=== PATIENT | female | born 1950 | race Caucasian/White ===

== ENCOUNTER 2016-10-09 07:47 | Emergency (ER) | payer OTHER ==
[~2016-10-09] VITALS: Ht 162.6 cm; Wt 49.0 kg
[~2016-10-09 07:47] MED LIST: AMIT25TA9 PO
[2016-10-09] MEDS ORDERED: INSU3INS6 SUBCUT (07:58)
[2016-10-09 08:30] LABS: BASOPHILS % 1.1 % (0.0-2.0); EOSINOPHILS % 2.4 % (0.0-5.0); HEMATOCRIT. 42.1 % (36.0-48.0); HEMOGLOBIN. 13.9 g/dL (12.0-16.0); LYMPHOCYTES % 25.2 % (20.0-50.0); MEAN CORPUSCULAR HEMOGLOBIN 27.5 pg (28.0-32.0); MEAN CORPUSCULAR VOLUME 83.3 fL (81.0-99.0); MEAN PLATELET VOLUME 7.4 fl (7.4-10.4); NEUTROPHILS % 64.3 % (40.0-76.0); PLATELET 252 x1000/uL (130-400); RED BLOOD CELL COUNT 5.05 mill/uL (4.2-5.4); RED CELL DISTRIBUTION WIDTH 17.6 % (11.6-14.6)
[2016-10-09 08:34] LABS: CHLORIDE 110 mEq/L (98-107)
[2016-10-09 08:40] LABS: CARBON DIOXIDE 23 mEq/L (21-32); ETHANOL BLOOD 73 mg/dL
[2016-10-09 09:13] LABS: KETONES URINE NEGATIVE (NEGATIVE); LEUKOCYTE ESTERASE URINE TRACE (NEGATIVE); NITRITE URINE NEGATIVE (NEGATIVE); OCCULT BLOOD URINE NEGATIVE (NEGATIVE); PROTEIN URINE NEGATIVE (NEGATIVE); SPECIFIC GRAVITY URINE 1.014 (1.005-1.030)
[2016-10-09 09:19] LABS: CLARITY URINE CLEAR (CLEAR); COLOR URINE YELLOW (YELLOW)
[2016-10-09 10:00] VITALS: BP 144/92
== END 2016-10-09 10:03 | disposition home or self-care (01) ==
LOC: ER 07:55
DX: S50.02XA Contusion of left elbow, initial encounter (principal); S29.9XXA Unspecified injury of thorax, initial encounter; E11.9 Type 2 diabetes mellitus without complications; F32.9 Major depressive disorder, single episode, unspecified; Z79.4 Long term (current) use of insulin; V43.52XA Car driver injured in collision with other type car in traffic accident, initial encounter; Y93.89 Activity, other specified; Y92.488 Other paved roadways as the place of occurrence of the external cause
CPT/HCPCS: 36415; 71010; 80048; 81001; 82962; 85025; 93005; 99285; G0482

== ENCOUNTER 2019-02-09 19:06 | Emergency (ER) | payer OTHER ==
[~2019-02-09] VITALS: Ht 152.4 cm; Wt 50.0 kg
[~2019-02-09 19:06] MED LIST changes: +INSU3INS6 SUBCUT
[2019-02-09] MEDS ORDERED: KETOROLAC 60MG/2ML VIAL IM ONE (20:00)
[2019-02-09 22:11] VITALS: BP 135/70
== END 2019-02-09 20:45 | disposition home or self-care (01) ==
LOC: ER 19:14
DX: S22.31XA Fracture of one rib, right side, initial encounter for closed fracture (principal); M53.3 Sacrococcygeal disorders, not elsewhere classified; F32.9 Major depressive disorder, single episode, unspecified; F17.200 Nicotine dependence, unspecified, uncomplicated; Z79.4 Long term (current) use of insulin; Z79.899 Other long term (current) drug therapy; W01.0XXA Fall on same level from slipping, tripping and stumbling without subsequent striking against object, initial encounter; Y93.89 Activity, other specified; Y92.89 Other specified places as the place of occurrence of the external cause; Y99.8 Other external cause status
CPT/HCPCS: 71045; 71100; 96372; 99283; J1885

== ENCOUNTER 2019-04-08 05:26 | Emergency (ER) | payer SELFPAY ==
[~2019-04-08] VITALS: Ht 152.4 cm; Wt 52.0 kg
[2019-04-08] MEDS ORDERED: ACETAMINOPHEN WITH CODEINE 300/30MG TABLET PO STA (09:19)
[2019-04-08] MEDS ORDERED: KETOROLAC 30MG/ML VIAL IV STA (09:19)
[2019-04-08 12:23] VITALS: BP 148/63
== END 2019-04-08 12:24 | disposition home or self-care (01) ==
LOC: ER 06:49
DX: S32.048A Other fracture of fourth lumbar vertebra, initial encounter for closed fracture (principal); W18.39XA Other fall on same level, initial encounter; Y93.89 Activity, other specified; Y92.89 Other specified places as the place of occurrence of the external cause; Y99.8 Other external cause status; F17.290 Nicotine dependence, other tobacco product, uncomplicated; E11.9 Type 2 diabetes mellitus without complications; E78.00 Pure hypercholesterolemia, unspecified; I10 Essential (primary) hypertension; Z79.4 Long term (current) use of insulin
CPT/HCPCS: 72100; 99283; 99406